=== PATIENT | female | born 1950 | race Caucasian/White ===

== ENCOUNTER → 2022-11-28 13:23 | Outpatient (BNVA) | payer MEDICARE, OTHER, SELFPAY | PROVIDERS: PCP Family Medicine; Referring Provider Neurological Surgery; Visit Provider Specialist | DX: G30.9 Alzheimer's disease, unspecified (principal); F02.811 Dementia in other diseases classified elsewhere, unspecified severity, with agitation; R15.9 Full incontinence of feces; R32 Unspecified urinary incontinence | CPT/HCPCS: 96116; 99205 ==

== ENCOUNTER → 2023-02-27 10:04 | Outpatient (BNVA) | payer MEDICARE, OTHER, SELFPAY | PROVIDERS: PCP Family Medicine; Visit Provider Specialist | DX: G30.9 Alzheimer's disease, unspecified (principal); F02.C0 Dementia in other diseases classified elsewhere, severe, without behavioral disturbance, psychotic disturbance, mood disturbance, and anxiety | CPT/HCPCS: 96116; 99214 ==